=== PATIENT | female | born 1965 | race Caucasian/White ===

== ENCOUNTER 2018-03-14 07:32 | Inpatient (IN) | payer OTHER ==
[2018-03-14] MEDS ORDERED: Senna TAB PO PRN (12:19)
[2018-03-14] MEDS ORDERED: Magnesium Hydroxide LIQ* 30 ML UDC PO PRN (12:19)
[2018-03-14] MEDS ORDERED: Cyclobenzaprine TAB* 10 MG PO PRN (12:26)
[2018-03-14] MEDS ORDERED: Polyethylene Glycol 3350* 17 GM PACKET PO PRN (12:29)
[2018-03-14] MEDS ORDERED: oxyCODONE TAB* 5 MG TAB PO PRN (12:30)
[2018-03-14] MEDS: Acetaminophen TAB* 325 MG PO SCH ×2 (13:11→18:52)
[2018-03-14] MEDS: oxyCODONE TAB* 5 MG TAB PO PRN ×3 (13:12→22:10)
[2018-03-14] MEDS: Docusate CAP* 100 MG PO SCH (20:51)
[2018-03-14] MEDS: Omeprazole CAP* 20 MG PO SCH (20:51)
[2018-03-14] MEDS: celeCOXIB CAP* 200 MG PO SCH (20:51)
[2018-03-14] MEDS: Enoxaparin(*) 30 MG/0.3 ML SYR SUBCUT SCH (20:55)
[2018-03-14] MEDS ORDERED: Gabapentin CAP(*) 300 MG PO SCH (21:00)
--- NOTE | 2018-03-14 21:44 | HP ---
ADMISSION HISTORY AND PHYSICAL: DATE OF ADMISSION: 03/14/18 REASON FOR ADMISSION: Bilateral total knee replacement. HISTORY OF PRESENT ILLNESS: Raven Farias is a 52-year-old female. She has a medical history significant for a partial nephrectomy for cancer of her kidney. She also has a history of gastroesophageal reflux disease. The patient had bilateral knee pain which was significant and limiting her ability to exercise. She had seen Dr. Reza. It was decided that she would benefit from a bilateral total knee replacement. She was evaluated by Dr. Brandt at [place] and cleared for surgery. She was admitted to [facility] on and underwent bilateral total knee replacements that day. She had a spinal anesthesia. The patient was started on Lovenox for DVT prophylaxis. There were no complications. The patient was felt to be medically stable. She was felt to have physical therapy and occupational therapy needs. She is now being admitted for inpatient rehab, so that she might return to independent living. PAST MEDICAL HISTORY: Includes renal cell cancer with a partial nephrectomy. She has also had history of hypertension and gastroesophageal reflux disease. CURRENT MEDICATIONS: Include: 1. Paxil. 2. Norvasc. 3. Lovenox for DVT prophylaxis. 4. Flonase. 5. Lisinopril. 6. Prilosec. 7. Oxycodone for pain. 8. Celebrex. ALLERGIES: The patient has an allergy listed to CHANTIX. SOCIAL HISTORY: The patient is a nonsmoker, nondrinker. She lives with her in a 1-story house; there are few steps to enter. 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 PHYSICAL EXAMINATION VITAL SIGNS: The patient's temperature is 98.5, blood pressure is 110/60, pulse 86, respirations 18. HEENT: Her extraocular movements were intact. Tongue is midline. LUNGS: Sounded clear to auscultation bilaterally. HEART: Sounds were regular, S1 and S2 were audible. ABDOMEN: Soft and nontender. EXTREMITIES: She has bandages over both knees that appear clean and dry. Peripheral pulses were intact. NEUROLOGIC: She was awake, alert, and oriented. Muscle strength is 5/5 in both upper and lower extremities. Her knees were painful, so muscle strength was difficult to test. She could dorsiflex and plantar flex with 5/5 strength. FUNCTIONAL EXAM: She transfers with mod assist. ASSESSMENT: Bilateral total knee replacement. PLAN: Integrate her into a comprehensive and therapeutic rehab program on the following goals: 1. Physical Therapy will work with the patient. They are going to work on functional transfer training, ambulation training with a walker. 2. Occupational Therapy will see the patient and work on her activities of daily living including toileting and toilet transfers. 3. Lovenox for DVT prophylaxis. 4. Adequate analgesia. 5. Her bowels will be regulated. 6. career services assistant will be closely involved to make sure that any services and equipment that the patient requires are in place prior to discharge. 7. Family training as appropriate. 8. Home with appropriate services. ESTIMATED LENGTH OF STAY: Seven days. [id number] #: [id number] RENE
[2018-03-15] MEDS: oxyCODONE TAB* 5 MG TAB PO PRN ×2 (06:16→09:55)
[2018-03-15] MEDS: Acetaminophen TAB* 325 MG PO SCH ×3 (08:31→13:05)
[2018-03-15] MEDS ORDERED: Ferrous Gluconate TAB* 324 MG TAB PO SCH (09:00)
[2018-03-15] MEDS ORDERED: Lisinopril TAB* 5 MG PO SCH (09:00)
[2018-03-15] MEDS ORDERED: amLODIPine TAB* 5 MG PO SCH (09:00)
[2018-03-15] MEDS ORDERED: Fluticasone NASAL SPRAY 50MCG* 16 gm SPRAY BTL BOTH NARES SCH (09:00)
[2018-03-15] MEDS ORDERED: PARoxetine HCL TAB* 20 MG PO SCH (09:00)
[2018-03-15] MEDS: Docusate CAP* 100 MG PO SCH (09:49)
[2018-03-15] MEDS: celeCOXIB CAP* 200 MG PO SCH (09:50)
[2018-03-15] MEDS: Omeprazole CAP* 20 MG PO SCH (09:51)
[2018-03-15] MEDS: Enoxaparin(*) 30 MG/0.3 ML SYR SUBCUT SCH (09:56)
[2018-03-15 15:42] VITALS: BP 94/59
--- NOTE | 2018-03-15 18:06 | PN ---
Progress Note Date of Service: 03/15/18 Note: YARELI LEWIS was visited. Therapy notes read and reviewed. She does not want to stay and wishes to be discharged. Since she is able to walk with supervision and will have supervision at home, will discharge Current Medications: Active Medications Generic Name Dose Route Start Last Admin Trade Name Freq PRN Reason Stop Dose Admin Acetaminophen 975 mg 03/14/18 13:00 03/15/18 13:05 Tylenol Tab* PO 03/17/18 19:01 975 mg Q6H AGUEDA Administration Amlodipine Besylate 10 mg 03/15/18 09:00 03/15/18 09:49 Norvasc Tab* PO 10 mg DAILY AGUEDA Administration Celecoxib 200 mg 03/14/18 21:00 03/15/18 09:50 Celebrex Cap* PO 03/17/18 21:01 200 mg BID AGUEDA Administration Cyclobenzaprine HCl 5 mg 03/14/18 12:26 Flexeril Tab* PO TID PRN SPASMS Docusate Sodium 100 mg 03/14/18 21:00 03/15/18 09:49 Colace Cap* PO 100 mg BID AGUEDA Administration Enoxaparin Sodium 30 mg 03/14/18 21:00 03/15/18 09:56 Lovenox(*) SUBCUT 30 mg Q12H AGUEDA Administration Ferrous Gluconate 324 mg 03/15/18 09:00 03/15/18 09:49 Fergon Tab* PO 324 mg DAILY AGUEDA Administration Fluticasone Propionate 2 spray 03/15/18 09:00 03/15/18 09:58 Flonase Nasal [place] 50mcg* BOTH NARES Not Given DAILY AGUEDA Gabapentin 300 mg 03/14/18 21:00 03/14/18 20:51 Neurontin Cap(*) PO 03/17/18 23:59 300 mg 2100 AGUEDA Administration Lisinopril 5 mg 03/15/18 09:00 03/15/18 09:50 Prinivil Tab* PO 5 mg DAILY AGUEDA Administration Magnesium Hydroxide 30 ml 03/14/18 12:19 Milk Of Magnesia Liq* PO Q6H PRN CONSTIPATION Omeprazole 20 mg 03/14/18 21:00 03/15/18 09:51 Prilosec Cap* PO 20 mg BID AGUEDA Administration Oxycodone HCl 10 mg 03/14/18 12:29 03/15/18 09:55 Roxycodone Tab* PO 10 mg Q4H PRN Administration PAIN - SEVERE Oxycodone HCl 5 mg 03/14/18 12:30 03/15/18 02:07 Roxycodone Tab* PO 5 mg Q4H PRN Administration PAIN - MODERATE TO SEVERE Paroxetine HCl 60 mg 03/15/18 09:00 03/15/18 09:48 Paxil Tab* PO 60 mg DAILY AGUEDA Administration Protocol Polyethylene Glycol/Electrolytes 17 gm 03/14/18 12:29 Miralax* PO DAILY PRN CONSTIPATION Senna 2 tab 03/14/18 12:19 03/14/18 20:54 Senokot Tab* PO 2 tab BEDTIME PRN Administration CONSTIPATION Vital Signs: Vital Signs Temp Pulse Resp BP Pulse Ox 98.3 F 79 20 94/59 96 03/15/18 15:39 03/15/18 15:39 03/15/18 15:39 03/15/18 15:39 03/15/18 15:39 Exam: LUNGS: Clear HEART: reg rhythm ABDOMEN: soft EXTREMITIES: Knees bandaged. Bandages appear clean NEUROLOGIC: alert. No focal weakness Assessment/Plan: 1. Bilateral TKR: PT/OT 2. HTN: On lisinopril, amlodipine 3. DVT Prophylaxis: Lovenox 4. Analgesia: On celebrex, Neurontin, acetaminophen, Oxycodone 5. Home today 03/15/18 18:04
--- NOTE | 2018-03-16 02:47 | DS ---
CC: Dr. Avi Thorpe * DISCHARGE SUMMARY: DATE OF ADMISSION: 03/14/18. DATE OF DISCHARGE: 03/15/18. DISCHARGE DIAGNOSES: 1. Bilateral total knee replacements. 2. History of renal cell cancer with partial nephrectomy. 3. Hypertension. 4. Gastroesophageal reflux disease. HISTORY OF PRESENT ILLNESS AND HOSPITAL COURSE: For complete history of the events leading up to her rehab stay, please see the history and physical dictated by me on 03/14/18. While on the rehab unit, she was medically stable. The patient was seen by Physical Therapy and Occupational Therapy on . She was felt to be at a supervision level. The patient did not wish to stay in the hospital. She wished to be discharged. She said she would get supervision at home. It was felt that the patient had a safe discharge plans. She was discharged to home on 03/15/18. DISCHARGE DIET: Regular. DISCHARGE MEDICATIONS: 1. Lovenox 30 mg subcutaneously twice a day. 2. Oxycodone 5 mg tablets 1 to 2 tablets every 4 hours as needed for pain. 3. Celebrex 200 mg twice daily for 3 days. 4. Gabapentin 300 mg at bedtime for 3 days. 5. Norvasc 10 mg daily. 6. Lisinopril 5 mg daily. 7. Omeprazole 20 mg twice daily. 8. Paxil CR 75 mg daily. SERVICES AFTER DISCHARGE: No services were put in place after discharge, the patient can go to outpatient physical therapy. FOLLOWUP: She will have followup with Nancy Littlejohn from [facility] on 03/31/18. She will also follow up with [facility], on 04/09/18. She can also follow up with her primary care doctor, Dr. Avi Thorpe at [facility]. [id number]/[id number] #: [id number] [facility]
== END 2018-03-15 19:07 | disposition home or self-care (01) | DRG 862 ==
LOC: PMRU 12:10
PROVIDERS: ADMIT Physical Medicine & Rehabilitation; ATTEND Physical Medicine & Rehabilitation
DX: Z47.1 Aftercare following joint replacement surgery (principal); Z96.653 Presence of artificial knee joint, bilateral; I10 Essential (primary) hypertension; K21.9 Gastro-esophageal reflux disease without esophagitis; Z85.528 Personal history of other malignant neoplasm of kidney; Z79.02 Long term (current) use of antithrombotics/antiplatelets; Z79.899 Other long term (current) drug therapy; Z88.8 Allergy status to other drugs, medicaments and biological substances
CPT/HCPCS: A9270-GY; J1650